=== PATIENT | male | born 1965 | race Caucasian/White ===

== ENCOUNTER 2017-11-01 05:33 | Inpatient (IN) | payer OTHER, BC ==
[2017-11-01] MEDS ORDERED: LACTATED RINGER'S 1,000 ML IV* (06:00)
[2017-11-01] MEDS: CEFAZOLIN 2 GM/50 ML (PMX) 50 ML IVPB (06:36)
[2017-11-01] MEDS ORDERED: CEFAZOLIN 1 GM INJ ×3 (07:00→14:13)
[2017-11-01] MEDS ORDERED: MIDAZOLAM 1 MG/ML 2 ML INJ (07:08)
[2017-11-01] MEDS: BUPIVACAINE 0.25% (MPF) 30 ML INJ (07:47)
[2017-11-01] MEDS: THROMBIN 5000 UNIT VIAL (07:47)
[2017-11-01] MEDS: GELATIN SIZE 100 SPONGE (07:47)
[2017-11-01] MEDS: CEFAZOLIN 1 GM INJ (07:47)
[2017-11-01] MEDS ORDERED: HEPARIN 1000 UNITS/ML 10 ML INJ (08:12)
[2017-11-01] MEDS ORDERED: SODIUM CL BACTERIOSTATIC 30 ML INJ (09:11)
[2017-11-01] MEDS ORDERED: FUROSEMIDE 20 MG INJ (09:42)
[2017-11-01] MEDS ORDERED: ROCURONIUM 50 MG INJ ×3 (09:43→14:12)
[2017-11-01] MEDS ORDERED: LIDOCAINE 2% (SDV) 5 ML INJ (09:43)
[2017-11-01] MEDS ORDERED: PROPOFOL 20 ML (09:43)
[2017-11-01] MEDS ORDERED: morphine 10 MG INJ (12:04)
[2017-11-01] MEDS ORDERED: THROMBIN 5000 UNIT VIAL (12:29)
[2017-11-01] MEDS ORDERED: SURGIFOAM POWDER 1 GM KIT (12:29)
[2017-11-01] MEDS ORDERED: GLYCOPYRROLATE 0.4 MG INJ (14:13)
[2017-11-01] MEDS ORDERED: NEOSTIGMINE 3 MG/3 ML SYRINGE (14:13)
[2017-11-01] MEDS ORDERED: ONDANSETRON 4 MG INJ ×2 (14:14→14:45)
[2017-11-01] MEDS ORDERED: FENTAnyl 50 MCG/ML VIAL (14:44)
[2017-11-01] MEDS ORDERED: HYDROmorphONE 1 MG/5 ML IV SYRINGE IV ×2 (14:45→15:00)
[2017-11-01] MEDS ORDERED: DIPHENHYDRAMINE 50 MG INJ IV (15:00)
[2017-11-01] MEDS ORDERED: DIAZEPAM 5 MG TAB PO (15:00)
[2017-11-01] MEDS ORDERED: NACL 0.9% 3 ML SYG IV (15:00)
[2017-11-01] MEDS ORDERED: METOCLOPRAMIDE 10 MG INJ IV (15:00)
[2017-11-01] MEDS ORDERED: ACETAMINOPHEN 325 MG TAB PO (15:00)
[2017-11-01] MEDS ORDERED: hydrALAzine 20 MG INJ IV (15:00)
[2017-11-01] MEDS ORDERED: DIAZEPAM 5 MG/ML SYG IM (15:00)
[2017-11-01] MEDS ORDERED: ZOLPIDEM 5 MG TAB PO (15:00)
[2017-11-01] MEDS ORDERED: LABETALOL HCL 20MG INJ IV (15:00)
[2017-11-01] MEDS ORDERED: PROCHLORPERAZINE 10 MG TAB PO (15:00)
[2017-11-01] MEDS ORDERED: MEPERIDINE 25 MG INJ IV (15:00)
[2017-11-01] MEDS ORDERED: AL HYDROX/MG HYDROX/SIMETH 30 ML CUP PO (15:00)
[2017-11-01] MEDS ORDERED: NALOXONE (0.4 MG/ML) INJ IV (15:00)
[2017-11-01] MEDS ORDERED: HYDROCODONE/APAP (5/325) TAB PO (15:00)
[2017-11-01] MEDS ORDERED: TRIMETHOBENZAMIDE 100 MG/ML VIAL IM (15:00)
[2017-11-01] MEDS: FENTAnyl 50 MCG/ML VIAL IV (15:06)
[2017-11-01] MEDS: ONDANSETRON 4 MG INJ IV (15:07)
[2017-11-01] MEDS: HYDROmorphONE 1 MG/5 ML IV SYRINGE IV (15:07)
[2017-11-01] MEDS: DEXTROSE 5%-0.45% NACL 1,000 ML IV (18:58)
[2017-11-01] MEDS: CEFAZOLIN 1 GM/50 ML (PMX) 50 ML IVPB (19:07)
[2017-11-01] MEDS: RANITIDINE 150 MG TAB PO (20:33)
[2017-11-01] MEDS: ATORVASTATIN 10 MG TAB PO ×2 (20:33→20:39)
[2017-11-01] MEDS: CEPASTAT LOZENGE MT (20:40)
[2017-11-01] MEDS: HYDROmorphONE 0.2 MG/ML PCA IV (22:49)
[2017-11-02] MEDS: DEXTROSE 5%-0.45% NACL 1,000 ML IV ×4 (00:39→21:53)
[2017-11-02] MEDS: CEFAZOLIN 1 GM/50 ML (PMX) 50 ML IVPB ×3 (01:06→11:51)
[2017-11-02] MEDS: CEPASTAT LOZENGE MT ×3 (01:09→11:57)
[2017-11-02] MEDS: DIPHENHYDRAMINE 50 MG CAP PO ×2 (02:08→11:57)
[2017-11-02 05:05] LABS: HEMATOCRIT 38.6 % (42.0-52.0)
[2017-11-02 05:28] LABS: ANION GAP 8 (8-16); BLOOD UREA NITROGEN 14 mg/dl (7-20); CALCIUM 7.5 mg/dl (8.4-10.2); CARBON DIOXIDE 29 mmol/L (21-31); CHLORIDE 104 mmol/L (97-110); GLUCOSE 130 mg/dl (70-220); POTASSIUM 3.5 mmol/L (3.5-5.1); SODIUM 137 mmol/L (135-144)
[2017-11-02] MEDS: LEVOTHYROXINE 125 MCG TAB PO (06:14)
[2017-11-02] MEDS ORDERED: BETHANECHOL 25 MG TAB PO (08:00)
[2017-11-02] MEDS: ASCORBIC ACID 500 MG TAB PO ×2 (08:31→21:49)
[2017-11-02] MEDS: FERROUS SULFATE (EC) 325 MG TAB PO ×3 (08:31→21:49)
[2017-11-02] MEDS: DOCUSATE SODIUM 100 MG CAP PO ×2 (08:31→21:49)
[2017-11-02] MEDS: AMLODIPINE 10 MG TAB PO (08:32)
[2017-11-02] MEDS: RANITIDINE 150 MG TAB PO ×2 (08:32→21:56)
[2017-11-02] MEDS: HYDROCODONE/APAP (5/325) TAB PO ×3 (11:08→21:48)
[2017-11-02 11:52] LABS: ADD UMIC YES; UR ASCORBIC ACID NEGATIVE (NEGATIVE); UR BILIRUBIN (Dip) NEGATIVE (NEGATIVE); UR BLOOD (Dip) 2+ mg/dL (NEGATIVE); UR CLARITY CLEAR (CLEAR); UR COLOR YELLOW (YELLOW); UR GLUCOSE (Dip) NEGATIVE (NEGATIVE); UR KETONES (Dip) NEGATIVE (NEGATIVE); UR LEUKOCYTE ESTERASE (Dip) NEGATIVE Leu/ul (NEGATIVE); UR NITRITE (Dip) NEGATIVE (NEGATIVE); UR RBC 4 /HPF (0-5); UR SPECIFIC GRAVITY (Dip) 1.018 (1.003-1.030); UR TOTAL PROTEIN (Dip) NEGATIVE (NEGATIVE); UR UROBILINOGEN (Dip) NEGATIVE (NEGATIVE); UR WBC 2 /HPF (0-5)
[2017-11-02] MEDS: POTASSIUM CHLORIDE (SR) 10 MEQ TAB PO (12:39)
[2017-11-02] MEDS: BETHANECHOL 25 MG TAB PO (14:09)
[2017-11-02] MEDS: AZITHROMYCIN 250 MG TAB PO (21:49)
[2017-11-02] MEDS: ATORVASTATIN 10 MG TAB PO (21:49)
[2017-11-02] MEDS: ONDANSETRON 4 MG INJ IV (23:40)
[2017-11-03 05:31] LABS: ADD MAN DIFF? NO
[2017-11-03 05:38] LABS: BASOPHILS % 0.3 % (0.0-2.0); EOSINOPHILS # 0.1 10^3/ul (0.0-0.5); EOSINOPHILS % 0.7 % (0.0-7.0); HEMOGLOBIN 12.8 g/dl (14.0-18.0); LYMPHOCYTES # 1.8 10^3/ul (0.8-2.9); LYMPHOCYTES % 15.4 % (15.0-51.0); MEAN CORPUSCULAR HEMOGLOBIN 27.6 pg (29.0-33.0); MEAN CORPUSCULAR HGB CONC 32.8 g/dl (32.0-37.0); MEAN CORPUSCULAR VOLUME 84.2 fl (82.0-101.0); MONOCYTES % 8.6 % (0.0-11.0); NEUTROPHIL # 8.9 10^3/ul (1.6-7.5); NEUTROPHILS % 74.7 % (39.0-77.0); PLATELET COUNT 171 10^3/UL (140-415); RED BLOOD COUNT 4.63 10^6/ul (4.70-6.10); RED CELL DISTRIBUTION WIDTH 14.5 % (11.5-14.5)
[2017-11-03 05:38] LABS: WHITE BLOOD COUNT 11.9 10^3/ul (4.8-10.8)
[2017-11-03] MEDS: HYDROCODONE/APAP (5/325) TAB PO ×3 (06:04→17:40)
[2017-11-03] MEDS: LEVOTHYROXINE 125 MCG TAB PO (06:04)
[2017-11-03 06:24] LABS: ALANINE AMINOTRANSFERASE 89 IU/L (13-69); ALBUMIN 3.5 g/dl (3.3-4.9); ALBUMIN/GLOBULIN RATIO 1.25; ALKALINE PHOSPHATASE 48 IU/L (42-121); ANION GAP 9 (8-16); ASPARTATE AMINO TRANSFERASE 296 IU/L (15-46); BILIRUBIN,INDIRECT 0.8 mg/dl (0-1.1); BILIRUBIN,TOTAL 0.8 mg/dl (0.2-1.3); BLOOD UREA NITROGEN 8 mg/dl (7-20); CALCIUM 7.9 mg/dl (8.4-10.2); CARBON DIOXIDE 28 mmol/L (21-31); CHLORIDE 105 mmol/L (97-110); CREATININE 1.04 mg/dl (0.61-1.24); GLUCOSE 128 mg/dl (70-220); POTASSIUM 3.7 mmol/L (3.5-5.1); SODIUM 138 mmol/L (135-144); TOTAL PROTEIN 6.3 g/dl (6.1-8.1)
[2017-11-03] MEDS: DEXTROSE 5%-0.45% NACL 1,000 ML IV (08:14)
[2017-11-03] MEDS: CEPASTAT LOZENGE MT (08:14)
[2017-11-03] MEDS: AZITHROMYCIN 250 MG TAB PO (08:15)
[2017-11-03] MEDS: FERROUS SULFATE (EC) 325 MG TAB PO ×3 (08:15→21:02)
[2017-11-03] MEDS: DOCUSATE SODIUM 100 MG CAP PO ×2 (08:15→21:02)
[2017-11-03] MEDS: ASCORBIC ACID 500 MG TAB PO ×2 (08:15→21:02)
[2017-11-03] MEDS: RANITIDINE 150 MG TAB PO ×2 (08:15→21:02)
[2017-11-03] MEDS: AMLODIPINE 10 MG TAB PO (08:15)
[2017-11-04] MEDS: HYDROCODONE/APAP (5/325) TAB PO ×3 (00:09→13:09)
[2017-11-04 05:13] LABS: ADD MAN DIFF? NO
[2017-11-04 05:16] LABS: BASOPHILS % 0.2 % (0.0-2.0); EOSINOPHILS # 0.4 10^3/ul (0.0-0.5); EOSINOPHILS % 3.4 % (0.0-7.0); HEMATOCRIT 35.1 % (42.0-52.0); HEMOGLOBIN 11.9 g/dl (14.0-18.0); LYMPHOCYTES # 1.4 10^3/ul (0.8-2.9); LYMPHOCYTES % 12.5 % (15.0-51.0); MEAN CORPUSCULAR HEMOGLOBIN 27.6 pg (29.0-33.0); MEAN CORPUSCULAR HGB CONC 33.9 g/dl (32.0-37.0); MEAN CORPUSCULAR VOLUME 81.4 fl (82.0-101.0); MEAN PLATELET VOLUME 9.8 fl (7.4-10.4); MONOCYTE # 1.1 10^3/ul (0.3-0.9); MONOCYTES % 10.2 % (0.0-11.0); NEUTROPHIL # 7.9 10^3/ul (1.6-7.5); NEUTROPHILS % 73.3 % (39.0-77.0); PLATELET COUNT 175 10^3/UL (140-415); RED BLOOD COUNT 4.31 10^6/ul (4.70-6.10)
[2017-11-04 05:16] LABS: WHITE BLOOD COUNT 10.8 10^3/ul (4.8-10.8)
[2017-11-04 05:48] LABS: ALANINE AMINOTRANSFERASE 79 IU/L (13-69); ALBUMIN 3.5 g/dl (3.3-4.9); ALKALINE PHOSPHATASE 67 IU/L (42-121); ANION GAP 11 (8-16); ASPARTATE AMINO TRANSFERASE 214 IU/L (15-46); BILIRUBIN,INDIRECT 0.9 mg/dl (0-1.1); BILIRUBIN,TOTAL 0.9 mg/dl (0.2-1.3); BLOOD UREA NITROGEN 8 mg/dl (7-20); CALCIUM 8.1 mg/dl (8.4-10.2); CARBON DIOXIDE 27 mmol/L (21-31); CHLORIDE 99 mmol/L (97-110); CREATININE 1.14 mg/dl (0.61-1.24); GLUCOSE 121 mg/dl (70-220); POTASSIUM 3.5 mmol/L (3.5-5.1); SODIUM 133 mmol/L (135-144); TOTAL PROTEIN 6.4 g/dl (6.1-8.1)
[2017-11-04] MEDS: LEVOTHYROXINE 125 MCG TAB PO (06:47)
[2017-11-04] MEDS: DOCUSATE SODIUM 100 MG CAP PO (09:07)
[2017-11-04] MEDS: AZITHROMYCIN 250 MG TAB PO (09:07)
[2017-11-04] MEDS: ASCORBIC ACID 500 MG TAB PO (09:07)
[2017-11-04] MEDS: RANITIDINE 150 MG TAB PO (09:07)
[2017-11-04] MEDS: FERROUS SULFATE (EC) 325 MG TAB PO ×2 (09:07→13:03)
[2017-11-04] MEDS: AMLODIPINE 10 MG TAB PO (09:07)
[2017-11-04] MEDS: BISACODYL 10 MG SUPP PR (09:55)
[2017-11-04] MEDS: BISACODYL 30 ML ENEMA PR (11:19)
== END 2017-11-04 15:30 | disposition home or self-care (01) | DRG 459 ==
LOC: REC 05:33 → MS1 17:20
PROC: 0SG30AJ Fusion of Lumbosacral Joint with Interbody Fusion Device, Posterior Approach, Anterior Column, Open Approach (ICD-10-PCS; principal; 2017-11-01 07:00)
PROC: 0SB40ZZ Excision of Lumbosacral Disc, Open Approach (ICD-10-PCS; 2017-11-01 07:00)
PROC: 4A11X4G Monitoring of Peripheral Nervous Electrical Activity, Intraoperative, External Approach (ICD-10-PCS; 2017-11-01 07:00)
DX: M48.07 Spinal stenosis, lumbosacral region (principal); J18.9 Pneumonia, unspecified organism; M51.17 Intervertebral disc disorders with radiculopathy, lumbosacral region; I10 Essential (primary) hypertension; E78.5 Hyperlipidemia, unspecified; E03.9 Hypothyroidism, unspecified; K76.0 Fatty (change of) liver, not elsewhere classified
CPT/HCPCS: 71045; 72110; 76700; 80048; 80053; 81001; 85014; 85018; 85025; 86850; 86900; 86901; 86920; 87040; 87086; 97116; 97162; 97530